=== PATIENT | female | born 1930 | race Hispanic/Latino ===

== ENCOUNTER → 2017-05-10 | Outpatient (CLI) | payer OTHER ==
[~2017-05-10] MED LIST: CLOP75TA32 PO; GLIM2TAB3 PO; LOSA25TA21 PO; METO25TA6 PO; SIMV40TA59 PO
== END | disposition home or self-care (01) ==
LOC: RAH 16:14
PROVIDERS: ATTEND Internal Medicine
DX: I51.7 Cardiomegaly (principal); M47.895 Other spondylosis, thoracolumbar region
CPT/HCPCS: 71046